=== PATIENT | female | born 1945 | race Caucasian/White ===

== ENCOUNTER 2018-06-20 01:06 | Outpatient (CLI) | payer MEDICARE, OTHER, SELFPAY ==
[2018-06-20 11:25] LABS: Anion Gap 9.7 mmol/L (3-11); BUN 14 mg/dL (7-18); CO2 26.3 mmol/L (21.0-32.0); CREATININE 0.79 mg/dL (0.55-1.02); Calcium 8.8 mg/dL (8.5-10.1); Chloride 102 mmol/L (98-107); Cholesterol 204 mg/dL (50-200); Glucose 141 mg/dL (70-100); HDL Cholesterol 54 mg/dL (40-60); LDL CHOLESTEROL 134 mg/dL (<100); Potassium 4.4 mmol/L (3.5-5.1); Sodium 138 mmol/L (136-145); Triglyceride 139 mg/dL (30-150)
[2018-06-20 11:31] LABS: Hemoglobin A1C 6.4 % (4.5-6.2)
== END 2018-06-20 01:26 ==
PROVIDERS: PCP Family Medicine; Visit Provider Family Medicine
DX: E11.9 Type 2 diabetes mellitus without complications (principal)
CPT/HCPCS: 36415; 80048; 80061; 83721; 83036

== ENCOUNTER 2019-01-30 00:38 | Outpatient (CLI) | payer MEDICARE, OTHER, SELFPAY ==
--- NOTE | 2019-01-30 13:22 | DI.MAMMO_ITS ---
SYMPTOMS/DIAGNOSIS: BREAST CANCER SCREENING, PERSONAL H/O BREAST CA, Z85.3 DIAGNOSTIC BILATERAL MAMMOGRAM: The patient has a history of a right lumpectomy. Comparison is made with exams from 2013 through 2018. The breasts are composed of scattered fibroglandular densities, breast density category B. Post lumpectomy scarring is again noted in the upper outer quadrant of the right breast. No suspicious masses or suspicious microcalcifications are seen. There has been no significant change. IMPRESSION: Category 2, negative mammogram. Yearly screening mammography is recommended. SA ASSESSMENT OF FINDINGS: Negative with benign findings. Category 2. Patient will receive a letter notifying them of these results. BI-RADS category B. There are scattered areas of fibroglandular density.
== END 2019-01-30 00:58 ==
PROVIDERS: PCP Family Medicine; Visit Provider Family Medicine
DX: Z85.3 Personal history of malignant neoplasm of breast (principal); Z12.31 Encounter for screening mammogram for malignant neoplasm of breast; Z98.890 Other specified postprocedural states
CPT/HCPCS: 77063; 77067

== ENCOUNTER 2019-06-26 01:33 | Outpatient (CLI) | payer MEDICARE, OTHER, SELFPAY ==
[2019-06-26 11:52] LABS: Anion Gap 11.5 mmol/L (3-11); BUN 13 mg/dL (7-18); CO2 25.5 mmol/L (21.0-32.0); CREATININE 0.67 mg/dL (0.55-1.02); Calcium 8.9 mg/dL (8.5-10.1); Calculated LDL 142 mg/dL; Chloride 103 mmol/L (98-107); Cholesterol 218 mg/dL (50-200); Glucose 140 mg/dL (70-100); HDL Cholesterol 48 mg/dL (40-60); Potassium 4.5 mmol/L (3.5-5.1); Sodium 140 mmol/L (136-145); Triglyceride 144 mg/dL (30-150)
== END 2019-06-26 01:53 ==
PROVIDERS: PCP Family Medicine; Visit Provider Family Medicine
DX: E78.5 Hyperlipidemia, unspecified (principal); I10 Essential (primary) hypertension
CPT/HCPCS: 36415; 80048; 80061

== ENCOUNTER 2020-03-28 03:03 | Outpatient (CLI) | payer MEDICARE, OTHER, SELFPAY ==
--- NOTE | 2020-03-28 09:15 | DI.MAMMO_ITS ---
EXAM: MG MAMMO SCREENING 60 MIN DUR CLINICAL HISTORY: breast cancer screening, Z85.3 personal hx of malignant neoplasm TECHNIQUE: Mammograms were interpreted according to the usual protocol including computer analysis w [employer] CAD system, tomosynthesis and C-view imaging. COMPARISON: 2011 through 2018 FINDINGS: The breasts are composed of scattered fibroglandular densities, Breast Density category B. there is s table postlumpectomy scarring in the upper outer quadrant of the right breast. No suspicious masses or suspicious microcalcifications are seen. No skin thickening or abnormal axillary lymph nodes are seen. There has been no significant change from prior exams. IMPRESSION: BI-RADS Category 2 - Benign Findings Yearly screening mammography is recommended. Breast Density Category B, scattered fibroglandular densities.
== END 2020-03-28 03:23 ==
PROVIDERS: PCP Family Medicine; Visit Provider Family Medicine
DX: Z12.31 Encounter for screening mammogram for malignant neoplasm of breast (principal); Z85.3 Personal history of malignant neoplasm of breast; Z98.890 Other specified postprocedural states
CPT/HCPCS: 77063; 77067

== ENCOUNTER 2020-05-06 03:02 | Outpatient (CLI) | payer MEDICARE, OTHER, SELFPAY ==
[2020-05-06 12:40] LABS: Abs Immature Grans 0.02 k/cumm (0.0-0.09); Absolute Basophil Count 0.05 k/cumm (0.0-0.2); Absolute Eosinophil Count 0.45 k/cumm (0.0-0.7); Absolute Lymphocyte Count 1.47 k/cumm (1.2-3.4); Absolute Monocyte Count 0.69 k/cumm (0.11-0.7); Absolute Neutrophil Count 3.72 k/cumm (1.2-6.7); Basophils % 0.8; HCT 41.5 % (36.0-46.0); HGB 13.6 g/dL (12.0-15.5); Immature Grans % 0.3 %; Mean Corp. HGB Concentration 32.8 g/dL (32.0-36.0); Mean Corpuscular Hemoglobin 30.2 pg (27.0-33.0); Mean Platelet Volume 11.9 fL (8.0-11.0); Monocytes % 10.8; Neutrophils % 58.1; Platelet Count 345 x1000/uL (130-400); RBC 4.51 m/cumm (4.00-5.20)
[2020-05-06 13:22] LABS: ALT 56 U/L (14-59); AST 28 U/L (15-37); Albumin 4.1 g/dL (3.4-5.0); Alkaline Phosphatase 81 U/L (46-116); BUN 14 mg/dL (7-18); Bilirubin, Total 0.4 mg/dL (0.2-1.0); CREATININE 0.66 mg/dL (0.55-1.02); Calcium 9.1 mg/dL (8.5-10.1); Chloride 103 mmol/L (98-107); Glucose 148 mg/dL (74-106); Potassium 4.5 mmol/L (3.5-5.1); Sodium 139 mmol/L (136-145); TSH (W/Ref FT4) 3.38 uIU/mL (0.36-3.74); Total Protein 7.1 g/dL (6.4-8.2); Vitamin B12 406 pg/mL (193-986)
[2020-05-06 13:24] LABS: Folate > 20.0 ng/mL (8.6-20.0)
== END 2020-05-06 03:22 ==
PROVIDERS: PCP Family Medicine; Visit Provider Family Medicine
DX: R20.2 Paresthesia of skin (principal)
CPT/HCPCS: 36415; 80053; 82607; 82746; 84443; 85025

== ENCOUNTER 2020-07-08 03:15 | Outpatient (CLI) | payer MEDICARE, OTHER, SELFPAY ==
[2020-07-08 12:43] LABS: Hemoglobin A1C 6.5 % (<5.7)
[2020-07-08 12:48] LABS: ALT 39 U/L (14-59); AST 20 U/L (15-37); Albumin 3.8 g/dL (3.4-5.0); Alkaline Phosphatase 76 U/L (46-116); Anion Gap 9.3 mmol/L (3-11); BUN 14 mg/dL (7-18); Bilirubin, Total 0.6 mg/dL (0.2-1.0); CO2 24.7 mmol/L (21.0-32.0); CREATININE 0.47 mg/dL (0.55-1.02); Calcium 8.9 mg/dL (8.5-10.1); Calculated LDL 127 mg/dL (<100); Chloride 103 mmol/L (98-107); Cholesterol 204 mg/dL (<200); Glucose 143 mg/dL (74-106); HDL Cholesterol 50 mg/dL (40-60); Potassium 4.7 mmol/L (3.5-5.1); Sodium 137 mmol/L (136-145); TSH (W/Ref FT4) 2.34 uIU/mL (0.36-3.74); Total Protein 6.9 g/dL (6.4-8.2); Triglyceride 137 mg/dL (<150)
== END 2020-07-08 03:35 ==
PROVIDERS: PCP Family Medicine; Visit Provider Family Medicine
DX: E11.9 Type 2 diabetes mellitus without complications (principal); I10 Essential (primary) hypertension; R53.83 Other fatigue
CPT/HCPCS: 36415; 80048; 80053; 80061; 83036; 84443

== ENCOUNTER 2020-07-15 06:54 | Outpatient (CLI) | payer MEDICARE, OTHER, SELFPAY ==
--- NOTE | 2020-07-15 10:45 | DI.RAD_ITS ---
EXAM: XR SHOULDER RT COMPLETE 2+V CLINICAL HISTORY: right shoulder pain, M25.511 TECHNIQUE: COMPARISON: No exams were available for comparison FINDINGS: Five views were obtained. There are mild hypertrophic degenerative changes of acromioclavicular and glenohumeral joints. The cartilaginous joint space of the glenohumeral joint appears fairly well becka ntained. No additional bony or soft tissue abnormality seen. 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 RADIATION DOSE DELIVERED: Total DLP
== END 2020-07-15 07:14 ==
PROVIDERS: PCP Family Medicine; Visit Provider Nurse Practitioner Family
DX: M19.011 Primary osteoarthritis, right shoulder (principal)
CPT/HCPCS: 73030

== ENCOUNTER 2020-09-11 12:10 | Outpatient (CLI) | payer MEDICARE, OTHER, SELFPAY ==
--- NOTE | 2020-09-11 08:00 | DI.US_ITS ---
EXAM: US SOFT TISSUE HEAD OR NECK CLINICAL HISTORY: neck swelling,R22.1. TECHNIQUE: Ultrasound was performed of the area of apparent clinical concern. This is on the left lateral neck. COMPARISON: No exams were available for comparison FINDINGS: Sonographic assessment utilizing grayscale and color Doppler imaging was performed and targeted to th e area of clinical concern. This reveals few small benign-appearing lymph nodes. Largest of these measures 8 x 4 millimeters. N o ominous solid mass nor fluid collection evident at this location. IMPRESSION: There are a few benign-appearing lymph nodes in the region of apparent clinical concern. No gross ly mphadenopathy nor ominous mass evident on ultrasound of this region. DATA REPOSITORY:
== END 2020-09-11 12:30 ==
PROVIDERS: PCP Family Medicine; Visit Provider Nurse Practitioner Family
DX: R22.1 Localized swelling, mass and lump, neck (principal); R59.0 Localized enlarged lymph nodes
CPT/HCPCS: 76536

== ENCOUNTER 2020-09-19 01:33 | Outpatient (CLI) | payer MEDICARE, OTHER, SELFPAY ==
--- NOTE | 2020-09-19 11:15 | DI.RAD_ITS ---
EXAM: XR SHOULDER LT COMPLETE 2+V CLINICAL HISTORY: left shoulder pain M25.512. TECHNIQUE: 2D digital imaging was performed. COMPARISON: CR XR SHOULDER RT COMPLETE 2+V from 07/15/2020 FINDINGS: BONES: No acute fracture is present. No bony destructive lesion is seen. Normal position of humeral head. JOINTS: No dislocation present. Minimal spurring AC joint and undersurface of the acromion. Minimal spurring at the glenoid. No significant joint space narrowing. SOFT TISSUE: Normal. IMPRESSION: Mild degenerative changes of the left shoulder. DATA REPOSITORY: RADIATION DOSE DELIVERED:
--- NOTE | 2020-09-19 11:15 | DI.RAD_ITS ---
EXAM: XR THORACIC SPINE COMPLETE CLINICAL HISTORY: thoracic back pain M54.6 TECHNIQUE: COMPARISON: No exams were available for comparison FINDINGS: Three views were obtained. There is mild narrowing of the intervertebral disc spaces throughout the thoracic region. Mild hypertrophic spurring of the vertebral endplates noted. No other significant bony abnormality seen. IMPRESSION: Degenerative changes as described above. RADIATION DOSE DELIVERED: Total DLP
== END 2020-09-19 01:53 ==
PROVIDERS: PCP Family Medicine; Visit Provider Family Medicine
DX: M47.814 Spondylosis without myelopathy or radiculopathy, thoracic region; M19.012 Primary osteoarthritis, left shoulder
CPT/HCPCS: 72072; 73030

== ENCOUNTER 2020-11-19 02:02 | Outpatient (CLI) | payer MEDICARE, OTHER, SELFPAY ==
[2020-11-20 15:19] LABS: COVID-19 RT-PCR UVMMC Result Negative (Negative)
== END 2020-11-19 02:03 | disposition home or self-care (01) ==
LOC: LBO 02:02
PROVIDERS: PCP Family Medicine; Visit Provider Family Medicine
DX: Z20.822 Contact with and (suspected) exposure to COVID-19 (principal)
CPT/HCPCS: U0003; U0005

== ENCOUNTER 2021-04-02 00:51 | Outpatient (CLI) | payer MEDICARE, OTHER, SELFPAY ==
--- NOTE | 2021-04-02 07:45 | DI.US_ITS ---
Exam(s) US SOFT TISSUE HEAD OR NECK EXAM: US SOFT TISSUE HEAD OR NECK CLINICAL HISTORY: supraclavicular lymphadenopathy,6 MO F/U,COMPARE TO 09/2020,R59.0. TECHNIQUE: Ultrasound was performed using standard protocol. COMPARISON: US US SOFT TISSUE HEAD OR NECK from 09/11/2020 US US SOFT TISSUE HEAD OR NECK from 09/11/2020 FINDINGS: Ultrasound examination of the area of clinical concern on the lateral left neck was performed and com pared to the prior ultrasound performed 09/11/2020 In the left supraclavicular region there is a 7 x 4x9 millimeter lymph node. Slightly higher up in t he neck there is another small lymph node, this measuring 6 x 5 x 4 millimeters.. Very little if any significant change compared to the prior September 2020 study. There is no gross lymphadenopathy. N o abnormal fluid collections evident. IMPRESSION: DATA REPOSITORY:
--- NOTE | 2021-04-02 07:45 | DI.MAMMO_ITS ---
Exam(s) MG MAMMO SCREENING 60 MIN DUR EXAM: MG MAMMO SCREENING 60 MIN DUR CLINICAL HISTORY: breast cancer screening,PERSONAL H/O BREAST CA,Z85.3. TECHNIQUE: Bilateral full field digital CC and MLO mammographic images were obtained with 3D tomosyn thesis and utilizing computer aided detection (CAD). COMPARISON: Prior mammograms dating back to 2011, the most recent being 2019. FINDINGS: Architectural distortion-scarring in the right breast from prior lumpectomy remains unchanged. There are no new spiculated masses nor malignant appearing microcalcification groups. There is no new significant architectural distortion nor new skin thickening-retraction. IMPRESSION: Stable benign findings. No radiographic evidence of malignancy. BI-RADS Category 2 - Benign Findings Breast Density - Category B - Scattered areas of fibroglandular density Breast density Category C or D implies that the patient has dense breast tissue. Dense breast tissue can make it harder to find cancer on a mammogram. Dense breast tissue is also associated with an incr eased risk of breast cancer. This information about the result of the mammogram report was provided to the patient to raise their awareness. Use this report when you speak with the patient about their risks for breast cancer, which includes their family history. At that time, you may recommend additional screening tests (Ultrasoun d or MRI) as these tests may add significant information. A negative radiographic report should not delay biopsy if a dominant or clinically suspicious mass is present. Up to ten percent of cancers are not identified on mammography. A negative report may reinforce clinical impression. Adenosis and dense breasts may obscure an underlying neoplasm. False positive reports average 6 to 10%. Patient will receive a letter notifying them of these results.
== END 2021-04-02 01:11 ==
PROVIDERS: Visit Provider Nurse Practitioner Family
DX: Z12.31 Encounter for screening mammogram for malignant neoplasm of breast (principal); R59.0 Localized enlarged lymph nodes; R92.8 Other abnormal and inconclusive findings on diagnostic imaging of breast; Z85.3 Personal history of malignant neoplasm of breast
CPT/HCPCS: 76536; 77063; 77067

== ENCOUNTER 2021-04-21 17:08 | Outpatient (REF) | payer MEDICARE, OTHER, SELFPAY ==
[2021-04-21 17:53] LABS: COMMENT (LAB VIEW ONLY) 127.94 mg/dL; Microalb ug/mg Crea 5.9 ug/mg Cr
== END 2021-04-21 17:09 | disposition home or self-care (01) ==
LOC: LBN 17:08
PROVIDERS: Visit Provider Nurse Practitioner Family
DX: E11.9 Type 2 diabetes mellitus without complications (principal)
CPT/HCPCS: 82043; 82570

== ENCOUNTER 2022-02-02 05:05 | Outpatient (CLI) | payer MEDICARE, OTHER, SELFPAY ==
[2022-02-02 10:45] LABS: Hemoglobin A1C 6.4 % (<5.7)
[2022-02-02 12:03] LABS: ALT 27 U/L (14-59); AST 18 U/L (15-37); Albumin 4.2 g/dL (3.4-5.0); Alkaline Phosphatase 89 U/L (46-116); Anion Gap 7.4 mmol/L (3-11); BUN 15 mg/dL (7-18); Bilirubin, Total 0.6 mg/dL (0.2-1.0); CO2 28.6 mmol/L (21.0-32.0); CREATININE 0.7 mg/dL (0.55-1.02); Calcium 9.2 mg/dL (8.5-10.1); Calculated LDL 158 mg/dL (<100); Chloride 103 mmol/L (98-107); Cholesterol 247 mg/dL (<200); Glucose 131 mg/dL (74-106); HDL Cholesterol 65 mg/dL (40-60); Potassium 4.6 mmol/L (3.5-5.1); Sodium 139 mmol/L (136-145); Total Protein 7.6 g/dL (6.4-8.2); Triglyceride 121 mg/dL (<150)
== END 2022-02-02 05:06 | disposition home or self-care (01) ==
LOC: LBO 05:05
DX: I10 Essential (primary) hypertension (principal); E78.5 Hyperlipidemia, unspecified; E11.9 Type 2 diabetes mellitus without complications
CPT/HCPCS: 36415; 80053; 80061; 83036

== ENCOUNTER 2022-04-19 11:04 | Emergency (ER) | payer MEDICARE, OTHER, SELFPAY ==
[2022-04-19 11:08] VITALS: BP 137/63; PULSE 97; RESP 14; TEMP 36.8; O2SAT 94
--- NOTE | 2022-04-19 11:21 | ED.GENADUL_ITS ---
Discharge Plan Disposition Patient Disposition: HOME Condition: Stable Discharge Details Clinical Impression: Uvulitis, Viral URI with cough Primary Care Provider: Jennifer Alexandra ED Provider: Becca Garcia Home Meds and New Rx's Prescriptions: New methylprednisolone [Medrol (César)] 4 mg tablets,dose pack See Rx Instructions .ROUTE .COMPLEX Qty: 21 0RF Rx Instructions: orally per package directions Continued (DME) lancets [FreeStyle Lancets] 28 gauge misc 1 ea Miscellaneous DAILY Qty: 100 5RF Rx Instructions: check blood sugar daily hydroxyzine HCl 25 mg tablet 25 mg PO TID PRN (Reason: itching) Qty: 90 3RF Rx Instructions: For itching amlodipine 5 mg tablet 5 mg PO DAILY Qty: 90 4RF lisinopril 20 mg tablet 20 mg PO DAILY Qty: 90 4RF Discharge Instructions Instructions: Upper Respiratory Infection (ED), Uvulitis (ED), COVID-19 (Coronavirus Disease 2019) (ED) Additional Instructions: Your rapid strep test today is negative. Your throat culture is pending and you will be notified if you are positive for another type of strep throat. Your symptoms could be due to a viral pharyngitis or a viral upper respiratory infection such as the common cold or possibly COVID. Please quarantine until your COVID test result is available and if confirmed to be negative. A prescription for oral steroids has been sent electronically to your pharmacy to take as directed for pain and inflammation associated with your sore throat. Be sure to check your sugar regularly as steroids can raise your blood sugar. Follow-up with your primary care doctor in 1 week. Return to the emergency department with any worsening or new concerning symptoms. Stand Alone Forms: PENDING COVID-19 TESTING Discharge Data Discharge Date/Time-TO BE ENTERED AT DEPARTURE: 04/19/22 12:13 Discharge Physician: Becca Garcia Medical Decision Making 76-year-old female with history of hypertension, hyperlipidemia, diabetes which is diet-controlled presents for dry, scratchy and sore throat and dry cough over the past few days. She admits to recent known exposure to strep and states she is mainly concerned about strep throat. Patient appears comfortable and nontoxic. She is speaking in full sentences without drooling or trismus. No signs of respiratory distress. Her uvula has mild edema and erythema but no evidence of peritonsillar abscess. Her lungs are clear bilaterally. Differential diagnosis includes uvulitis, viral pharyngitis, strep or COVID. History and presentation does not appear consistent with pneumonia, PE or meningitis. Rapid strep negative. Discussed with patient that due to her main complaint of sore throat, suspect uvulitis and will give a dose of Decadron. She states she does not take medication for her diabetes and states it is diet-controlled. She is advised to check her sugar regularly while taking steroids. We will send a prescription for Medrol Dosepak to her pharmacy. Advised to quarantine until COVID test result available and if confirmed to be negative. Throat culture sent. Advised to follow up with the primary care doctor for re-evaluation. Usual and customary return precautions given prior to discharge. Medical Records Medical records reviewed: Yes I reviewed the patient's medical records. HPI General Mode of arrival: ambulatory . Date/Time Provider Initiated Documentation: 04/19/22 11:20 . Limitations to Documentation: no limitations . Information obtained by: patient . HPI Narrative: Patient is a 76-year-old female who has received a total of 4 doses of COVID-vaccine presents for dry, scratchy and sore throat with dry cough over the past few days. She states she did have a recent exposure to strep throat. Patient denies known fever, headache, neck pain, ear pain, chest pain, shortness of breath, abdominal pain, vomiting or diarrhea. Related Data Home Medications Medication Instructions Recorded Confirmed lancets 28 gauge (FreeStyle #100 ea 12/05/20 03/30/22 Lancets) hydroxyzine HCl 25 mg tablet 25 mg PO TID PRN itching #90 09/22/21 03/30/22 tab-caps amlodipine 5 mg tablet 5 mg PO DAILY #90 tab-caps 11/03/21 04/19/22 lisinopril 20 mg tablet 20 mg PO DAILY #90 tab-caps 11/03/21 04/19/22 methylprednisolone 4 mg tablets in See Rx Instructions PO .COMPLEX 04/19/22 a dose pack (Medrol (César)) #21 dose pk Previous Rx's Medication Instructions Recorded lancets 28 gauge (FreeStyle #100 ea 12/05/20 Lancets) hydroxyzine HCl 25 mg tablet 25 mg PO TID PRN itching #90 09/22/21 tab-caps amlodipine 5 mg tablet 5 mg PO DAILY #90 tab-caps 11/03/21 lisinopril 20 mg tablet 20 mg PO DAILY #90 tab-caps 11/03/21 methylprednisolone 4 mg tablets in See Rx Instructions PO .COMPLEX 04/19/22 a dose pack (Medrol (César)) #21 dose pk Allergies Allergy/AdvReac Type Severity Reaction Status Date / Time metformin AdvReac Intermediate myalgias Unverified 04/19/22 11:11 General Stated Complaint: Sorethroat ZOYA: 4 Review of Systems All systems reviewed & are unremarkable except as noted in HPI and below Constitutional Constitutional: Denies chills, Denies excessive sweating, Denies fatigue, Denies fever(s), Denies weakness and Denies weight loss Eyes Eyes: Reports system reviewed and no additional complaints, except as documented and Denies blurry vision ENT Ears, Nose, Mouth, and Throat: Denies vertigo, Denies dizziness, Denies otalgia, Denies nasal congestion, Reports sore throat and Denies throat swelling Cardiovascular Cardiovascular: Denies chest pain, Denies syncope, Denies rapid heart rate and Denies dyspnea Respiratory Respiratory: Denies chest congestion, Reports cough, Denies pain on inspiration and Denies dyspnea Gastrointestinal Gastrointestinal: Denies abdominal pain, Denies diarrhea and Denies vomiting Genitourinary Genitourinary: Denies hematuria, Denies dysuria and Denies flank pain Musculoskeletal Musculoskeletal: Denies back pain and Denies joint swelling Integumentary/Breasts Skin/Breast: Denies lesions and Denies rash Neurologic Neurologic: Denies behavioral changes, Denies confusion, Denies vertigo, Denies dizziness, Denies syncope, Denies localized weakness and Denies weakness Psychiatric Psychiatric: Denies behavioral changes, Denies confusion and Denies depression Endocrine Endocrine: Denies excessive sweating and Denies fatigue Hematologic/Lymphatic Hematologic/Lymphatic: Denies easy bruising and Denies lymphadenopathy Allergic/Immunologic Allergic/Immunologic: Denies throat swelling PFSH All Active Problems (Updated 04/19/22 @ 12:02 by Becca Garcia DO) Uvulitis (Acute) Viral URI with cough (Acute) History of breast cancer (Acute) About 1999, right breast cancer, status postlumpectomy, followed by radiation, tamoxifen x5 years per oncology at [facility] As of 03/2022 no recurrence, yearly mammogram Osteoarthritis of hands, bilateral (Acute) Diabetes type 2, controlled (Acute) Diet controlled Varicose veins of lower extremity (Acute) Polyp of colon (Acute 09/09/04) 2009-T.A. -and hyperplastic polyps 2012-multiple tubular adenomas 2016-normal Hyperlipidemia (Acute 04/20/13) 03/2022-declines statin Essential hypertension (Acute 06/20/15) Medical History (Updated 04/19/22 @ 12:02 by Becca Garcia DO) Anemia (09/09/95) breast ca Chronic pruritus (06/24/17) Essential hypertension Hyperlipidemia Sessile serrated adenoma Tubular adenoma Surgical History Biopsy of breast lumpectomy and radiation Cervical Conization/LEEP Colonoscopy - MAC (09/07/16) Hysterectomy, Laproscopic Family History Mother , AGE 87 Diabetes Father , AGE 67 Renal cancer Sister , AGE 52 Breast cancer Brother Prostate cancer Sister No problems noted. Sister No problems noted. Sister No problems noted. Sister No problems noted. Brother No problems noted. Son No problems noted. Son No problems noted. Maternal Grandfather No problems noted. Paternal Grandfather No problems noted. Maternal Grandmother No problems noted. Paternal Grandmother No problems noted. Social History (Updated 03/31/22 @ 12:13 by Jennifer Tsang) Smoking/Tobacco Use Status: Former Tobacco Use tobacco type: cigarettes Smoking risk assessment performed?: Yes Alcohol Intake: current Alcohol Intake frequency: a few times a week Alcohol type: beer and wine Drug use: Never Substance use type: does not use Caregiver/Support person: No Household members: none Housing: apartment Communication Needs: None Do you need help understanding health information?: Never Pets and animals: No Current gender identity: female What is your relationship status?: How often do you talk on the phone with friends or family?: three or more times per week How often do you get together with friends or relatives?: twice per week How often do you attend moravian or sikhism services?: decline to answer Do you belong to any clubs or organized social groups?: no Panel score (0-1 are the most socially isolated patients): 1 What type of physical activity do you participate in: none Frequency: does not exercise Lexi/Mandaeism: No preference Special lexi needs: No Seatbelt use: always Helmet use: Yes Helmet use: always Drive intox or ride w/intox class a regional drivers: No Do you feel safe at home: Yes Do you feel safe in your relationship?: Yes Exam Const General: cooperative and no acute distress Orientation: alert, awake and oriented x3 HENMT Head: normal to inspection Ears: hearing grossly normal bilaterally, external ears normal and TM's normal bilaterally General nose exam: external nose normal Face and sinus: normal facial exam Mouth: oral mucosae normal, no drooling and no trismus Teeth and gingiva: dentition normal Throat: uvula midline, no peritonsillar masses, posterior oropharynx abnormal an d uvular edema (mild with erythema) Eyes General: appearance normal, both eyes and all related structures Eyelids: eyelids normal Pupils: PERRL EOM: EOM intact bilaterally Neck Neck: normal visual inspection and No submandibular swelling Lymphatic: no lymphadenopathy noted Chest Chest: normal inspection of the chest Resp Effort & Inspection: normal respiratory effort and able to speak in complete sentences Auscultation: clear to auscultation bilaterally Cardio Rate: regular rate Rhythm: regular rhythm Back/Spine/Pelvis Back: no CVA tenderness Skin General skin exam: no rashes or lesions noted Neuro General: patient alert, patient awake and no meningeal signs Cognition: normal cognition Speech: speech normal Gait: normal gait Motor: muscle tone normal throughout Sensory Exam: no sensory deficits noted Extrem General: normal to inspection, full ROM and capillary refill normal Psych Appearance: grossly normal Mental Status: mental status grossly normal Speech and Movement: speech and movement normal Affect: normal affect Thought Process: normal Course Vital Signs Vital signs: Vital Signs Temperature 98.2 F 04/19/22 11:08 Pulse 97 H 04/19/22 11:08 Respiratory Rate 14 04/19/22 11:08 Blood Pressure 137/63 04/19/22 11:08 Pulse Oximetry 94 04/19/22 11:08 Temperature 98.2 F 04/19/22 11:08 Temperature Source Temporal Artery Scan 04/19/22 11:08 Pulse 97 H 04/19/22 11:08 Respiratory Rate 14 04/19/22 11:08 Respiratory Effort Non-Labored 04/19/22 11:11 Blood Pressure 137/63 04/19/22 11:08 Blood Pressure Position Sitting 04/19/22 11:08 Pulse Oximetry 94 04/19/22 11:08 Oxygen Delivery Method Room Air 04/19/22 11:08 Oxygen Flow Rate 0 04/19/22 11:08 Pain Level 0 04/19/22 11:08 PAWSS Have you Been Recently Intoxicated or Drunk Within the Last 30 days?: No Have you Ever Experienced Previous Episodes of Alcohol Withdrawal?: No Have you ever Experienced Withdrawal Seizures?: No Have you ever Experienced Delirium Tremens(DT)s?: No Have you ever undergone Alcohol Rehabilitation Treatment (i.e, inpt ot outpatient treatment programs)?: No Have you ever Experienced Blackouts?: No Have you ever Combined Alcohol with other Downers within the last 90 days?: No Have you ever Combined Alcohol with any other Substance of Abuse during the last 90 days?: No Positive Blood Alcohol level on Presentation? [PCS.BAL]: No Evidence of Increased Autonomic Activity (i.e. HR>120, tremor, sweating, agitation, nausea)?: No Result: 0
[2022-04-19] MEDS: Dexamethasone 10 MG/ML VIAL PO (11:53)
[2022-04-21 14:40] LABS: COVID-19 RT-PCR UVMMC Result Negative (Negative)
--- NOTE | 2022-04-21 17:34 | NUR.NOTE ---
gave patient her negative covid result
== END 2022-04-19 12:13 | disposition home or self-care (01) ==
PROVIDERS: Emergency Provider Physician Assistant
DX: J06.9 Acute upper respiratory infection, unspecified (principal); K12.2 Cellulitis and abscess of mouth; I10 Essential (primary) hypertension; E11.9 Type 2 diabetes mellitus without complications; Z87.891 Personal history of nicotine dependence; Z20.822 Contact with and (suspected) exposure to COVID-19
CPT/HCPCS: 99283; 99284; U0003; 87081; J1100

== ENCOUNTER → 2022-05-20 01:17 | Outpatient (CLI) | payer MEDICARE, OTHER, SELFPAY ==
--- NOTE | 2022-05-20 07:45 | DI.MAMMO_ITS ---
Exam(s) MG MAMMO SCREENING 60 MIN DUR EXAM: MG MAMMO SCREENING 60 MIN DUR CLINICAL HISTORY: breast cancer screening,PERSONAL H/O BREAST CA,Z85.3 TECHNIQUE: Mammograms were interpreted according to the usual protocol including computer analysis w [employer] CAD system, tomosynthesis and C-view imaging. COMPARISON: FINDINGS: The breasts are of moderate density. There is been a partial mastectomy on the right. No mass or cl umped microcalcification identified in either breast. Comparison with previous examinations includin g March 2021 shows no gross interval change in appearance. IMPRESSION: No specific evidence of malignancy at this time. Routine screening examinations are suggested at yea rly intervals due to the history of breast carcinoma. BI-RADS Category 1 - Negative Breast Density - Category B - Scattered areas of fibroglandular density
== END ==
PROVIDERS: Visit Provider Family Medicine
DX: Z85.3 Personal history of malignant neoplasm of breast (principal); Z12.31 Encounter for screening mammogram for malignant neoplasm of breast
CPT/HCPCS: 77063; 77067

== ENCOUNTER 2023-03-29 04:30 | Outpatient (CLI) | payer MEDICARE, OTHER, SELFPAY ==
[2023-03-29 12:52] LABS: ALT 31 U/L (14-59); AST 16 U/L (15-37); Albumin 3.6 g/dL (3.4-5.0); Alkaline Phosphatase 79 U/L (46-116); Anion Gap 10.4 mmol/L (3-11); BUN 20 mg/dL (7-18); Bilirubin, Total 0.4 mg/dL (0.2-1.0); CO2 25.6 mmol/L (21.0-32.0); CREATININE 0.7 mg/dL (0.55-1.02); Calcium 8.8 mg/dL (8.5-10.1); Chloride 105 mmol/L (98-107); Estimated GFR 88.47 (mL/min/1.73m2); Glucose 140 mg/dL (74-106); Potassium 4.1 mmol/L (3.5-5.1); Sodium 141 mmol/L (136-145); Total Protein 7.3 g/dL (6.4-8.2)
[2023-03-29 13:23] LABS: Calculated LDL 145 mg/dL (<100); Cholesterol 220 mg/dL (<200); HDL Cholesterol 48 mg/dL (40-60); Triglyceride 135 mg/dL (<150)
== END 2023-03-29 04:31 | disposition home or self-care (01) ==
LOC: LOS 04:30
PROVIDERS: PCP Nurse Practitioner Family; Visit Provider Nurse Practitioner Family
DX: E78.5 Hyperlipidemia, unspecified (principal); I10 Essential (primary) hypertension; E11.9 Type 2 diabetes mellitus without complications
CPT/HCPCS: 36415; 80053; 80061

== ENCOUNTER → 2023-05-21 00:19 | Outpatient (CLI) | payer MEDICARE, OTHER, SELFPAY ==
--- NOTE | 2023-05-21 11:13 | DI.MAMMO_ITS ---
Exam(s) MG MAMMO SCREENING 60 MIN DUR EXAM: MG MAMMO SCREENING 60 MIN DUR CLINICAL HISTORY: breast cancer screening,PERSONAL H/O BREAST CA,Z85.3 TECHNIQUE: Mammograms were interpreted according to the usual protocol including computer analysis w [employer] CAD system, tomosynthesis and C-view imaging. COMPARISON: 2012 through 2021 FINDINGS: The breasts are composed of scattered fibroglandular densities, Breast Density category B. No suspicious masses or suspicious microcalcifications are seen. Post lumpectomy scarring is again o f the upper outer quadrant right breast. No skin thickening or abnormal axillary lymph nodes are seen. There has been no significant change from prior exams. IMPRESSION: BI-RADS Category 2 - Negative Mammogram with benign findings. Yearly screening mammography is recomm ended. Breast Density - Category B, scattered fibroglandular densities. A negative radiographic report should not delay biopsy if a dominant or clinically suspicious mass is present. Up to ten percent of cancers are not identified on mammography. A negative report may reinforce clinical impression. Adenosis and dense breasts may obscure an underlying neoplasm. False positive reports average 6 to 10%. Patient will receive a letter notifying them of these results.
== END ==
PROVIDERS: PCP Nurse Practitioner Family; Visit Provider Nurse Practitioner Family
DX: Z85.3 Personal history of malignant neoplasm of breast (principal); Z12.31 Encounter for screening mammogram for malignant neoplasm of breast
CPT/HCPCS: 77063; 77067

== ENCOUNTER → 2023-10-14 09:37 | Outpatient (BNVA) | payer MEDICARE, OTHER, SELFPAY | PROVIDERS: PCP Nurse Practitioner Family; Referring Provider Nurse Practitioner Family; Visit Provider Physical Therapy Assistant | DX: Z12.11 Encounter for screening for malignant neoplasm of colon (principal); Z86.010 Personal history of colon polyps ==

== ENCOUNTER 2023-10-25 08:56 | Day surgery (SDC) | payer MEDICARE, OTHER, SELFPAY ==
--- NOTE | 2023-10-24 07:56 | W.PM.DSUDISC ---
Date of service: 10/25/23 Time of Service: 11:59 Discharge Plan Disposition Patient Disposition: Home Condition: Good Discharge Details Reason For Visit: screening colonoscopy Attending Provider: David Haile Primary Care Provider: Gigi Hwang Home Meds and New Rx's Prescriptions: Continued hydroxyzine HCl 25 mg tablet 25 mg PO TID PRN (Reason: itching) Qty: 90 3RF Rx Instructions: For itching glucosamine HCl 500 mg tablet 500 mg PO BID Rx Instructions: administer with meals omega 6-oqq-vtl-fish oil [Fish Oil] 1,000 mg (120 mg-180 mg) capsule 1 cap PO BID Collagen Skin Renewal 30-833.3 mg tablet 1 tab PO DAILY (DME) lancets [FreeStyle Lancets] 28 gauge misc 1 ea Miscellaneous DAILY Qty: 100 5RF Rx Instructions: check blood sugar daily lisinopril 20 mg tablet 20 mg PO HS amlodipine 5 mg tablet 5 mg PO HS Discontinued polyethylene glycol 3350 17 gram/dose powder 238 g PO ONCE Qty: 238 0RF Rx Instructions: take per colonoscopy instructions bisacodyl [Dulcolax (bisacodyl)] 5 mg tablet,delayed release (DR/EC) 5 mg PO ONCE Qty: 4 0RF Rx Instructions: take per colonoscopy instructions Discharge Instructions Instructions: Diverticulosis (GEN), Colorectal Polyps (GEN), Diverticulosis Diet (GEN) Additional Instructions: Goldie, we are able to complete your colonoscopy today without any difficulty. I did find a total of 3 polyps. These were medium to small in size. I removed these all completely without any issues. Incidentally, he also have a little bit of diverticulosis. Diverticula are little weak spots in the colon wall that typically accumulate with age. Generally speaking, the best treatment is about a balanced diet that is rich in fiber, and avoiding symptoms of constipation and dehydration. We have attached a little bit of information here regarding diverticular disease as well as polyps. If you have any questions at all, please do not hesitate to call. Otherwise, I will be in touch when I have the pathology report from the polyp removal regarding the nature of the polyps, with any other recommendations. 1. If tolerated, consume a soft, low fiber diet for 1-2 days. 2. Do not drive, drink alcohol, operate machinery, make critical decisions, or do activities that require coordination or balance for 24 hours. 3. Because air was put into your colon during the procedure, expelling air from your rectum (passing gas or farting) is normal. 4. You may not have a bowel movement for 1-3 days because of the colonoscopy prep. This is normal. 5. Go directly to the emergency room if you notice any of the following: Develop chills (warm to touch), or if you have a thermometer and your temperature is above 101 Difficulty breathing or difficultly swallowing Persistent vomiting Severe abdominal pain, other than gas cramps Severe chest pain Black, tarry stools Any bleeding ? exceeding one tablespoon 6. Call your physician if the site where your intravenous was started becomes red, swollen, painful, and warm to touch. 7. Your physician has reviewed your pre-procedure medications. Please continue to take those medications as previously ordered. You will be given specific information/education regarding any changes to your medications before leaving. Activity:: Activity as Tolerated Diet:: As Tolerated Discharge Orders Discharge Orders: Discharge Order (Routine); Ordered 10/24/23 Ordered By: David Haile DS: Diagnosis Discharge Diagnosis (1) Screen for colon cancer: Status: Acute Asessment and Plan: Follow-up on polypectomy results
--- NOTE | 2023-10-24 07:58 | W.COLOREPORT ---
Date of service: 10/25/23 Time of Service: 12:00 Colonoscopy Report Date of procedure: 10/25/23 Pre-op diagnosis general: screening colonoscopy Post-op diagnosis procedure note: other (Colon polyps, diverticulosis) Procedure: Colonoscopy with polypectomy Surgeon: David Haile Anesthesia Type: General:No Airway Estimated blood loss (mL): 5 Pathology: other (0.25 cm cecal polyp, 0.5 cm polyp at 80 cm, 0.25 cm polyp at 75 cm) Complications: None Disposition: same day Indications: Goldie is 77 years old. She has a history of adenomatous polyps. She needs another screening colonoscopy Prep: Miralax/Dulcolax Procedure Start Time: 11:19 Procedure End Time: 11:46 Retraction Time: 18 Findings: 0.25 cm cecal polyp, 0.5 cm polyp at 80 cm, 0.25 cm polyp at 75 cm; diverticulosis Procedure Description: After the induction of monitored anesthetic care, and with the patient in left lateral decubitus position, I began by performing an external anorectal exam.? Perineum and skin were normal, as was the anal verge.? There was no evidence of external hemorrhoids.? Next, I performed a digital rectal exam.? I did not appreciate any abnormal findings.? Next, I advanced a colonoscope into the rectal vault.? I performed retroflexion.? This was normal.? Using insufflation, I then advanced the colonoscope beyond the rectal folds and into the sigmoid colon before advancing towards the cecum.? There was some sigmoid diverticulosis.? The scope was noted to be in the cecum by identification of the ileocecal valve and appendiceal orifice.? Within the cecum, was a 0.25 cm flat cecal polyp. I removed this with cold forceps without any issue. There was minimal bleeding. I then began withdrawing the colonoscope using repeated irrigation as necessary for full evaluation of the colonic mucosa. I also found a 0.5 cm polyp at 80 cm, which was mostly flat, and another flat polyp that measured approximately 0.25 cm at 75 cm from the anus. Both of these were also removed with cold forceps without any problems. Once the scope was withdrawn to the level of the rectum, great care was taken to examine portions of the rectal folds.? Finally, the scope was withdrawn and the patient was brought to the same-day surgery recovery unit as the anesthetic wore off. ?The findings and instructions were shared with the patient prior to discharge. [place] Bowel Prep [place] Bowel Prep Right Colon: 3 Left Colon: 3 Transverse Colon: 3 Total Score: 9
[2023-10-25 09:26] VITALS: BP 134/76; PULSE 98; RESP 16; TEMP 36.8; O2SAT 98
[2023-10-25] MEDS: Lactated Ringers 1,000 ML 80 ML IV (09:29)
--- NOTE | 2023-10-25 11:00 | W.ANESPRE ---
General Info Date of Service Date Performed: 10/25/23 Height: 5 ft Weight: 68.4 kg Body Mass Index (BMI): 29.4 Surgical Procedure: Operation Date: 10/25/23 10:35 Proposed Procedure Side Surgeon sherry Haile MD Meds Allergies and Home Medications Allergies Allergy/AdvReac Type Severity Reaction Status Date / Time metformin AdvReac Intermediate myalgias Unverified 10/25/23 09:24 Home Medication Medication Instructions Recorded lancets 28 gauge (FreeStyle #100 ea 12/05/20 Lancets) hydroxyzine HCl 25 mg tablet 25 mg PO TID PRN itching #90 04/16/23 tab-caps ascorbic acid 30 mg-collagen, 1 tab PO DAILY 10/14/23 hydrolyzed 833.3 mg tablet (Collagen Skin Renewal) glucosamine HCl 500 mg tablet 500 mg PO BID 10/14/23 omega 5-isd-mhj-fish oil 1,000 mg 1 cap PO BID 10/14/23 (120 mg-180 mg) capsule (Fish Oil) amlodipine 5 mg tablet 5 mg PO HS 10/22/23 lisinopril 20 mg tablet 20 mg PO HS 10/22/23 Current Visit Medications: Current Medications Generic Name Dose Route Start Last Admin Trade Name Freq PRN Reason Stop Dose Admin Hyoscyamine Sulfate 0.125 mg 10/24/23 07:59 Hyoscyamine 0.125 Mg Sl/Oral/Chew SL 11/23/23 07:58 DIRECTED PRN Ringer's Solution 1,000 mls @ 80 mls/hr 10/25/23 06:00 10/25/23 09:29 IV 10/25/23 23:59 80 mls/hr INFUSION ELISSA Administration IV Miscellaneous Supplies 1 each 10/25/23 06:00 Iv Access IV 10/25/23 23:59 DIRECTED ELISSA Ondansetron HCl 4 mg 10/24/23 07:59 Ondansetron 4 Mg/2 Ml Vial IVP 11/23/23 07:58 Q4H PRN PRN Nausea / Vomiting Sodium Chloride 0 ml 10/25/23 06:00 Normal Saline Flush 10 Ml Syr IV 10/25/23 23:59 PRN PRN Sodium Chloride 0 ml 10/25/23 06:00 Normal Saline 10 Ml Vial IJ 10/25/23 23:59 DIRECTED PRN Sterile Water 0 ml 10/25/23 06:00 Water,Injection,Sterile 10 Ml Vial IJ 10/25/23 23:59 DIRECTED PRN PFSH Active Problems Active Problems: Problem Status Onset Code Screen for colon cancer Z12.11 History of breast cancer Z85.3 Osteoarthritis of hands, 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, 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 Diabetes type 2, controlled E11.9 Varicose veins of lower extremity I83.90 Polyp of colon 09/09/04 K63.5 Hyperlipidemia 04/20/13 E78.5 Essential hypertension 06/20/15 I10 Medical History Medical History Chronic pruritus (06/24/17) Anemia (09/09/95) breast ca Tubular adenoma Sessile serrated adenoma Hyperlipidemia Essential hypertension Surgical History Surgical History Hysterectomy, Laproscopic Colonoscopy - MAC (09/07/16) Cervical Conization/LEEP Biopsy of breast lumpectomy and radiation Tobacco Smoking/Tobacco Use Status: Former Tobacco Use Passive smoking exposure: Yes Second hand exposure: Yes Alcohol Alcohol Intake: current Alcohol intake frequency: a few times a week Alcohol type: wine Substance Use Substance use: Never Substance use type: does not use Vital Signs and Lab Results Vital Signs Most Recent Vital Signs in EMR: Most Recent Vital Signs Temp Pulse Resp BP Pulse Ox 36.8 C 98 H 16 134/76 98 10/25/23 09:26 10/25/23 09:26 10/25/23 09:26 10/25/23 09:26 10/25/23 09:26 Point of Care Results Point of Care Results: Finger Stick Blood Glucose 122 10/25/23 09:21 Lab Results Blood Type / Crossmatch: No Data to Display Complete Blood Count: No Data to Display Complete Metabolic Panel: Hemoglobin A1c 7.3 % (4.5-5.7) H 10/18/23 11:32 Liver Function Panel: No Data to Display Coagulation Panel: No Data to Display Cardiac Panel: No Data to Display Arterial Blood Gas: No Data to Display Venous Blood Gas: No Data to Display Pancreas Panel: No Data to Display Thyroid Panel: No Data to Display Infectious Disease: No Data to Display Blood Cultures: No Data to Display Toxicology Panel: No Data to Display Imaging and Studies Imaging and Studies Study information below may be from another EMR and interpreted by another provider. Please see original notes in EMR for more complete details. Stress Test Summary: 08/16/2017: Stress results: Maximal heart rate during stress was 156bpm (105% of maximal predicted heart rate). The maximal predicted heart rate was 148bpm. The target heart rate was achieved. The rate-pressure product for the peak heart rate and blood pressure was 46848pq Hg/min. Stress ECG: STRESS TEST ENDED IN 6 MINUTES & 45 SECONDS BECAUSE OF PATIENT FATIGUE. NORMAL BLOOD PRESSURE RESPONSE TO EXERCISE. HEART RATE TACHY AT BASELINE WHILE STANDING AT REST. NORMAL HEART RATE RESPONSE TO EXERCISE. MAX HR = 156 % OF TARGET = [address] CHANGES SEEN NO ANGINA NO ECTOPY APPROXIMATE METS ACHIEVED = 8.18 ABOVE AVERAGE FUNCTIONAL EXERCISE CAPACITY. Myocardial perfusion: Imaging information: gated. No myocardial perfusion defects noted. Ventricular Function (Wall Motion): The calculated left ventricular ejection fraction after stress: 91%. Echocardiogram Summary: 08/12/2017: Summary: 1. Left ventricle: The cavity size was normal. Wall thickness was increased in a pattern of mild LVH. Systolic function was hyperdynamic. The estimated ejection fraction was 65-70%. 2. Mitral valve: There was mild regurgitation. 3. Right ventricle: The cavity size was normal. Wall thickness was normal. Systolic function was normal. 4. Atrial septum: No defect or patent foramen ovale was identified. 5. Tricuspid valve: There was mild-moderate regurgitation. 6. Pulmonary arteries: Pulmonary systolic pressure was in the range of 25mm Hg to 35mm Hg. 7. Inferior vena cava: The vessel was patent and normal in size. The respirophasic diameter changes were in the normal range (greater than or equal to 50%), consistent with normal central venous pressure. Anesthesia Assessment and Plan Anesthesia History Personal History: No History of Anesthesia Complications Family History: No Family History of Anesthesia Complications Exercise Tolerance Exercise Tolerance: Metabolic Equivalents>4 Pertinent Negatives Pertinent Negatives: No Symptoms of GERD, No Major Cardiovascular Symptoms or Complaints and No Major Pulmonary Symptoms or Complaints Cardiac & Pulmonary Exam Cardiac Exam: Normal S1/S2 Heart Sounds Pulmonary Exam: Clear Bilateral Breath Sounds Implantable Cardiac Device Does patient have a Pacemaker or an ICD?: No Airway Exam Known Difficult Airway: No Mallampati Class: 2 Mouth Opening: Normal (> 3cm) Thyromental Distance: Greater than 3 cm Neck Range of Motion: Full ROM Neck Circumference: Normal Teeth Condition: Normal Dentition, Removable Dentures/Plates Upper and Removable Dentures/Plates Lower (partial) ASA Classification ASA Score: ASA 3 Emergency Case?: No NPO Status NPO Status: NPO Clears >2 hours, Solids >8 hours Anesthesia Plan Resuscitation Status: Full Code Anesthesia Technique: General Anesthesia Airway Planned: Natural Airway Monitors Used: Standard Monitors
[2023-10-25 11:03] VITALS: BMI 29.4
--- NOTE | 2023-10-25 11:28 | BOWEL_PTH ---
PATIENT: Goldie Collins I LOC: [facility] U#:[id number] AGE/SX: 77/F ROOM: RE10/25/[address]: David Haile MD : 1945 BED: DIS: 10/25/2023 SPEC #: [id number] RECD: 10/25/23 13:13 STATUS: ILYA RE #: [id number] ERIC: 10/25/23 11:[address]: David Haile DEPT: Surgical Specimen RECD BY: Cata De Anda ENTERED: 10/25/23 13:14 SP TYPE: Bowel OTHR DR: Gigi Hannah, CHITO Tissues: 1 - BIOPSY BOWEL 2 - BIOPSY BOWEL 3 - BIOPSY BOWEL Procedures: GROSS AND MICRO LEVEL 4 Comments: [id number]
[2023-10-25 11:56] VITALS: BP 107/82; PULSE 86; RESP 16; TEMP 36.1; O2SAT 97
[2023-10-25 12:35] VITALS: BP 137/89; PULSE 79; RESP 18; TEMP 36.1; O2SAT 98
--- NOTE | 2023-10-25 12:57 | W.ANESPOSTOP ---
Postoperative Evaluation Date, Time and Location Date Performed: 10/25/23 Time Performed: 12:55 Patient Location: Day Surgery Unit Vital Signs Most Recent Imported Vital Signs: Most Recent Vital Signs Temp Pulse Resp BP Pulse Ox 36.1 C L 79 18 137/89 98 10/25/23 12:35 10/25/23 12:35 10/25/23 12:35 10/25/23 12:35 10/25/23 12:35 Pain Score Most Recent Pain Score: Most Recent Pain Score Pain Level 0 10/25/23 12:35 Assessment Mental Status: Awake (Alert & Oriented to Patient Baseline) Airway and Respiratory Function: Patent airway with normal (patient baseline) respiratory exam Cardiovascular Function: Hemodynamically Stable Hydration Status: Adequately Hydrated Nausea & Vomiting: No Nausea or Vomiting Pain: Pt. Denies Any Pain Peripheral Nerve Block: Patient did not receive a nerve block
== END 2023-10-25 12:55 | disposition home or self-care (01) ==
LOC: SUR 08:57
PROVIDERS: PCP Nurse Practitioner Family; Visit Provider Surgery
PROC: 0DJD8ZZ Inspection of Lower Intestinal Tract, Via Natural or Artificial Opening Endoscopic (ICD-10-PCS; CPT 45378; principal; 2023-10-25 10:30)
DX: Z12.11 Encounter for screening for malignant neoplasm of colon (principal); D12.0 Benign neoplasm of cecum; K57.30 Diverticulosis of large intestine without perforation or abscess without bleeding; I10 Essential (primary) hypertension; E11.9 Type 2 diabetes mellitus without complications; Z86.010 Personal history of colon polyps; D12.4 Benign neoplasm of descending colon
CPT/HCPCS: 45380; 88305; J2001; J2704

== ENCOUNTER 2024-06-28 03:01 | Outpatient (CLI) | payer MEDICARE, OTHER, SELFPAY ==
[2024-06-28 12:24] LABS: BUN 13 mg/dL (7-18); CREATININE 0.7 mg/dL (0.55-1.02); Chloride 103 mmol/L (98-107); Estimated GFR 87.92 (mL/min/1.73m2); Glucose 148 mg/dL (74-106); Potassium 4.1 mmol/L (3.5-5.1); Sodium 139 mmol/L (136-145)
[2024-06-28 12:34] LABS: Hemoglobin A1C 6.4 % (<5.7)
== END 2024-06-28 03:02 | disposition home or self-care (01) ==
LOC: LOS 03:01
PROVIDERS: PCP Nurse Practitioner Family; Visit Provider Nurse Practitioner Family
DX: E11.9 Type 2 diabetes mellitus without complications (principal)
CPT/HCPCS: 36415; 80048; 83036

== ENCOUNTER 2024-08-07 01:03 | Outpatient (CLI) | payer MEDICARE, OTHER, SELFPAY ==
--- NOTE | 2024-08-07 07:15 | DI.MAMMO_ITS ---
Exam(s) MG MAMMO SCREENING 60 MIN DUR EXAM: MG MAMMO SCREENING 60 MIN DUR CLINICAL HISTORY: breast cancer screening,personal h/o breast ca,z12.31 TECHNIQUE: Mammograms were interpreted according to the usual protocol including computer analysis w [employer] CAD system, tomosynthesis and C-view imaging. COMPARISON: 2014 through 2022 FINDINGS: The breasts are composed of scattered fibroglandular densities, Breast Density category B. No suspicious masses or suspicious microcalcifications are seen. Post lumpectomy changes again noted in the right breast. No skin thickening or abnormal axillary lymph nodes are seen. There has been no significant change from prior exams. IMPRESSION: BI-RADS Category 2 - Benign Findings Yearly screening mammography is recommended. Breast Density - Category B, scattered fibroglandular densities. A negative radiographic report should not delay biopsy if a dominant or clinically suspicious mass is present. Up to ten percent of cancers are not identified on mammography. A negative report may reinforce clinical impression. Adenosis and dense breasts may obscure an underlying neoplasm. False positive reports average 6 to 10%. Patient will receive a letter notifying them of these results.
== END 2024-08-07 01:23 ==
LOC: DI 01:03
PROVIDERS: PCP Nurse Practitioner Family; Visit Provider Nurse Practitioner Family
DX: Z12.31 Encounter for screening mammogram for malignant neoplasm of breast (principal); Z85.3 Personal history of malignant neoplasm of breast
CPT/HCPCS: 77063; 77067

== ENCOUNTER 2025-07-06 18:40 | Outpatient (REF) | payer MEDICARE, OTHER, SELFPAY | END 2025-07-06 18:41 | disposition home or self-care (01) | LOC: LBN 18:40 | PROVIDERS: PCP Nurse Practitioner Family; Visit Provider Physician Assistant | DX: L03.011 Cellulitis of right finger (principal) | CPT/HCPCS: 87070; 87205 ==

== ENCOUNTER 2025-07-23 03:40 | Outpatient (CLI) | payer MEDICARE, OTHER, SELFPAY ==
[2025-07-23 14:24] LABS: ALT 46 U/L (14-59); AST 25 U/L (15-37); Albumin 3.7 g/dL (3.4-5.0); Alkaline Phosphatase 72 U/L (46-116); Anion Gap 11.1 mmol/L (3-11); BUN 12 mg/dL (7-18); Bilirubin, Total 0.5 mg/dL (0.2-1.0); CO2 27.9 mmol/L (21.0-32.0); Calcium 9.2 mg/dL (8.5-10.1); Calculated LDL 146 mg/dL (<100); Chloride 101 mmol/L (98-107); Cholesterol 215 mg/dL (<200); Estimated GFR 74.44 (mL/min/1.73m2); Glucose 152 mg/dL (74-106); HDL Cholesterol 45 mg/dL (>or=50); Hemoglobin A1C 6.7 % (<5.7); Potassium 3.8 mmol/L (3.5-5.1); Sodium 140 mmol/L (136-145); Total Protein 7.8 g/dL (6.4-8.2); Triglyceride 123 mg/dL (<150)
== END 2025-07-23 03:41 | disposition home or self-care (01) ==
LOC: LOS 03:40
PROVIDERS: PCP Nurse Practitioner Family; Visit Provider Nurse Practitioner Family
DX: E11.9 Type 2 diabetes mellitus without complications (principal)
CPT/HCPCS: 36415; 80053; 80061; 83036

== ENCOUNTER → 2025-09-07 01:32 | Outpatient (CLI) | payer MEDICARE, OTHER, SELFPAY ==
--- NOTE | 2025-09-07 11:05 | DI.MAMMO_ITS ---
Exam(s) MG MAMMO SCREENING 60 MIN DUR EXAM: MG MAMMO SCREENING 60 MIN DUR CLINICAL HISTORY: breast cancer screening, HX BREAST CANCER, Z85.3 TECHNIQUE: Mammograms were interpreted according to the usual protocol including computer analysis with CAD system, tomosynthesis and C-view imaging. COMPARISON: 2015 through 2023 FINDINGS: The breasts are composed of scattered fibroglandular densities, Breast Density category B. No suspicious masses or suspicious microcalcifications are seen. Post lumpectomy changes are again noted in the right breast. No skin thickening or abnormal axillary lymph nodes are seen. There has been no significant change from prior exams. IMPRESSION: BI-RADS Category 2 - Benign Findings Yearly screening mammography is recommended. Breast Density - Category B - There are scattered areas of fibroglandular density. Breast density Category C or D implies that the patient has dense breast tissue. Dense breast tissue can make it harder to find cancer on a mammogram. Dense breast tissue is also associated with an increased risk of breast cancer. This information about the result of the mammogram report was provided to the patient to raise their awareness. Use this report when you speak with the patient about their risks for breast cancer, which includes their family history. At that time, you may recommend additional screening tests (Ultrasound or MRI) as these tests may add significant information. A negative radiographic report should not delay biopsy if a dominant or clinically suspicious mass is present. Up to ten percent of cancers are not identified on mammography. A negative report may reinforce clinical impression. Adenosis and dense breasts may obscure an underlying neoplasm. False positive reports average 6 to 10%. Patient will receive a letter notifying them of these results.
== END ==
LOC: DI 01:33
PROVIDERS: PCP Nurse Practitioner Family; Visit Provider Nurse Practitioner Family
DX: Z85.3 Personal history of malignant neoplasm of breast (principal); Z12.31 Encounter for screening mammogram for malignant neoplasm of breast; R92.323 Mammographic fibroglandular density, bilateral breasts
CPT/HCPCS: 77063; 77067